=== PATIENT | female | born 1945 | race Caucasian/White ===

== ENCOUNTER → 2018-09-25 | Outpatient (CLI) | payer MEDICARE | LOC: RAD 09:30 | PROVIDERS: ATTEND Family Medicine | DX: Z12.31 Encounter for screening mammogram for malignant neoplasm of breast (principal) | CPT/HCPCS: 77067 ==

== ENCOUNTER → 2019-09-27 | Outpatient (CLI) | payer MEDICARE ==
--- NOTE | 2019-09-27 11:56 | Diagnostic Imaging Report ---
INDICATION: Routine screening. COMPARISON: Comparison is made with prior mammograms from 09/25/2018 and 05/16/2016. TECHNIQUE: 2-D and 3-D bilateral screening mammography was performed. The current study was also evaluated with a Computer Aided Detection (CAD) system. 3-D tomosynthesis was also performed and reviewed. FINDINGS: Both breasts remain heterogeneously dense, limiting the sensitivity of mammography. The parenchymal pattern is stable. No dominant mass or malignant-appearing microcalcifications are seen. Axillae are unremarkable. IMPRESSION: No mammographic features suspicious for malignancy are identified. ACR BI-RADS Category 2: Benign findings. Result letter will be mailed to the patient. Note: At least 10% of breast cancer is not imaged by mammography. Dictated by: Dictated on workstation # [id number]
== END ==
LOC: RAD 09:18
PROVIDERS: ATTEND Family Medicine
DX: Z12.31 Encounter for screening mammogram for malignant neoplasm of breast (principal)
CPT/HCPCS: 77067

== ENCOUNTER 2021-08-08 13:08 | Outpatient (CLI) | payer MEDICARE ==
[~2021-08-08] VITALS: Ht 162.6 cm; Wt 45.5 kg
[2021-08-08 14:00] VITALS: BP 108/94
[2021-08-08] MEDS ORDERED: D5 LR IV SOLUTION 500 ML IV SCH (14:15)
[2021-08-08] MEDS ORDERED: D5 LR IV SOLUTION 500 ML IV ONE (14:15)
[2021-08-08] MEDS ORDERED: ONDANSETRON 4 MG/2 ML (SDV) Z0FRAN IV ONE (14:15)
== END 2021-08-08 16:58 | disposition home or self-care (01) ==
LOC: SDC 13:08
PROVIDERS: ATTEND Family Medicine
DX: Z01.89 Encounter for other specified special examinations (principal)
CPT/HCPCS: 96360; 96361; 96374

== ENCOUNTER → 2021-12-11 | Outpatient (CLI) | payer MEDICARE ==
--- NOTE | 2021-12-11 13:08 | Diagnostic Imaging Report ---
Indication: Routine screening. Comparison is made with prior mammogram from 09/27/2019 09/25/2018. 2-D and 3-D bilateral screening mammography was performed with CAD. CAD is utilized. The current study was also evaluated with a Computer Aided Detection (CAD) system. Both breast are heterogeneously dense, limiting the sensitivity of mammography. There are benign calcifications. No mass or malignant-appearing microcalcifications are seen. Axillae are unremarkable. IMPRESSION: BI-RADS Category 2 No mammographic features suspicious for malignancy are identified. Dictated by: Dictated on workstation # [id number]
--- NOTE | 2021-12-11 17:06 | Diagnostic Imaging Report ---
INDICATION: Postmenopausal screening for osteoporosis. COMPARISON: None FINDINGS: AP Spine L1-L4: [BMD (g/cm2): 0.972] [T-Score: -1.9] [Z-Score: 0.3] [BMD Previous: NA] [BMD % Change: NA] LT Hip Neck: [BMD (g/cm2): 0.671] [T-Score: -2.6] [Z-Score: -0.4] LT Hip Total: [BMD (g/cm2):0.742] [T-Score:-2.1] [Z-Score: 0.0] [BMD Previous: NA] [BMD % Change: NA] RT Hip Neck: [BMD (g/cm2):0.678] [T-Score:-2.6] [Z-Score:-0.4] RT Hip Total: [BMD (g/cm2):0.723] [T-score:-2.3] [Z-Score:-0.2] [BMD Previous:NA] [BMD % Change:NA] *Indicates significant change from prior examination based on 95% confidence level. World Health Organization criteria for BMD interpretation classify patients as Normal (T-score at or above -1.0), Osteopenic (T-score between -1.0 and -2.5) or Osteoporotic (T-score at or below -2.5). LIMITATIONS AND MODIFICATION: None. FRACTURE RISK (FRAX SCORE): The ten year probability of (%): Major Osteoporotic Fracture: [15.3] Hip Fracture: [5.5] IMPRESSION: 1. Osteopenia (Low bone mass). 2. Baseline examination. 3. See below National Osteoporosis Foundation guidelines on when to potentially initiate pharmacologic therapy. Based on the National Osteoporosis Foundation Guidelines, pharmacologic treatment should be initiated in any of the following, unless clinical conditions suggest otherwise: * Any patient with prior fragility fracture of the hip or vertebrae. A spine fracture indicates 5X risk for subsequent spine fracture and 2X risk for subsequent hip fracture. * Osteoporosis (T-score <-2.5). * Postmenopausal women and men age 50 and older with low bone mass/osteopenia (T-score between -1.0 and -2.5) by DXA and 10-year major osteoporotic fracture greater than 20% or a 10-year probability of hip fracture greater than 3%. These fracture risks are supplied above in the FRAX score, if applicable. * Clinician judgement and/or patient preferences may indicate treatment for people with 10-year fracture probabilities above or below these levels. Dictated by: Dictated on workstation # [id number]
== END ==
LOC: RAD 09:15
PROVIDERS: ATTEND Family Medicine
DX: Z12.31 Encounter for screening mammogram for malignant neoplasm of breast (principal); Z13.820 Encounter for screening for osteoporosis; M81.0 Age-related osteoporosis without current pathological fracture; M85.88 Other specified disorders of bone density and structure, other site; Z78.0 Asymptomatic menopausal state
CPT/HCPCS: 77063; 77067; 77080

== ENCOUNTER → 2021-12-21 | Outpatient (CLI) | payer MEDICARE | LOC: CARD 10:19 | PROVIDERS: ATTEND Internal Medicine Cardiovascular Disease | DX: I35.8 Other nonrheumatic aortic valve disorders (principal) | CPT/HCPCS: 93306 ==

== ENCOUNTER → 2022-05-09 | Outpatient (CLI) | payer MEDICARE ==
--- NOTE | 2022-05-09 10:38 | Cardiology Stress Test Report ---
TREADMILL STRESS TEST Date of procedure: 05/09/2022. Primary care provider: Swapnil Kamara MD. Admitting physician: Delbert Mckee Jr., MD. INDICATION: Abnormal electrocardiogram. BASELINE ELECTROCARDIOGRAM: Sinus rhythm with nonspecific anterior T wave changes. STRESS TEST PROCEDURE: The patient was exercised for a total of 2 minutes and 47 seconds of the standard Massimo protocol achieving a maximum MET level of 4.2. The resting heart rate was 72 bpm and the peak heart rate was 147 bpm, which represents 101% of the maximum predicted heart rate. The resting blood pressure was 141/71 mmHg and the peak blood pressure was 166/84 mmHg. This represents a normal heart rate and a normal blood pressure response to exercise. The test was stopped due to patient attaining the target heart rate. There was no chest discomfort during the test. There were no arrhythmias during the test. There were no significant stress induced electrocardiogram changes. The patient exhibited good exercise capacity for age. IMPRESSION: 1. Normal heart rate and blood pressure response to exercise. 2. There was no exercise-induced chest discomfort, arrhythmias, or electrocardiogram changes. 3. The patient exhibited good exercise capacity for age at 2 minutes and 47 seconds of the Massimo protocol. 4. This is an unremarkable treadmill stress test. Certain portions of this document may have been dictated utilizing voice recognition technology. Inherent to this technology, typographical and grammatical errors may exist. As much as I am diligent to identify and correct these mistakes, some errors may remain in the document. DELBERT MCKEE JR, MD May 09, 2022 10:38
== END ==
LOC: CARD 09:15
PROVIDERS: ATTEND Internal Medicine Cardiovascular Disease
DX: R94.31 Abnormal electrocardiogram [ECG] [EKG] (principal)
CPT/HCPCS: 93017

== ENCOUNTER → 2023-02-25 | Outpatient (CLI) | payer MEDICARE ==
--- NOTE | 2023-02-25 15:35 | Diagnostic Imaging Report ---
INDICATION: Routine screening. COMPARISON: 12/11/2021 and 09/27/2019. TECHNIQUE: 2D and 3D bilateral screening mammography was performed with CAD. FINDINGS: Both breasts are heterogeneously dense, limiting the sensitivity of mammography. The parenchymal pattern is stable. No mass or malignant-appearing microcalcifications are seen. The axillae are unremarkable. IMPRESSION: No mammographic features suspicious for malignancy are identified. ACR BI-RADS Category 1: Negative. Result letter will be mailed to the patient. Note: At least 10% of breast cancer is not imaged by mammography. Dictated by: Dictated on workstation # [id number]
== END ==
LOC: RAD 09:52
PROVIDERS: ATTEND Family Medicine
DX: Z12.31 Encounter for screening mammogram for malignant neoplasm of breast (principal)
CPT/HCPCS: 77063; 77067

== ENCOUNTER → 2023-04-09 | Outpatient (CLI) | payer MEDICARE | END | disposition home or self-care (01) | LOC: PREOP 05:31 | PROVIDERS: ATTEND Surgery | DX: Z01.818 Encounter for other preprocedural examination (principal) ==

== ENCOUNTER 2023-06-17 07:07 | Day surgery (SDC) | payer MEDICARE ==
[~2023-06-17] VITALS: Ht 162.6 cm; Wt 54.0 kg
[~2023-06-17 07:07] MED LIST: BIMA2.5D4 OU; LEVO75CA5 PO; LORA-405 PO; PANT40TA52 PO; ROSU10TA28 PO
[2023-06-17] MEDS ORDERED: LACTATED RINGERS 1,000 ML 1,000 ML IV STA (07:15)
[2023-06-17 07:37] VITALS: BP 139/77
[2023-06-17 08:40] VITALS: BP 89/48
--- NOTE | 2023-06-17 08:42 | Progress Note-Post Operative ---
Post-Operative Progess Note Surgeon (s)/Parenting Skills Instructor (s) Surgeon JOSE COOK DO Parenting Skills Instructor: n/a Pre-Operative Diagnosis screening colonoscopy Post-Operative Diagnosis normal colonoscopy Procedure & Operative Findings Date of Procedure 06/17/23 Procedure Performed/Findings normal colonoscopy Anesthesia Type per OUTSIDE SALES ASSOCIATE Estimated Blood Loss Estimated blood loss (mL): none Specimens/Packing Specimens Removed none JOSE COOK DO Jun 17, 2023 08:41
--- NOTE | 2023-06-17 08:43 | Discharge Inst-Simple/Standard ---
Discharge Inst-Standard Patient Instructions/Follow Up Plan of Care/Instructions/FU: does not need anymore unless has symptoms Activity as Tolerated: Yes Discharge Diet: Regular Diet JOSE COOK DO Jun 17, 2023 08:43
[2023-06-17 08:45] VITALS: BP 94/50
[2023-06-17 08:55] VITALS: BP 112/57
[2023-06-17 09:29] VITALS: BP 112/57
--- NOTE | 2023-06-17 11:18 | Anesthesia-General Post-Op ---
MAC Patient Condition Mental Status/LOC: Same as Preop Cardiovascular: Satisfactory Nausea/Vomiting: Absent Respiratory: Satisfactory Pain: Controlled Complications: Absent Post Op Complications Complications None Follow Up Care/Instructions Patient Instructions None needed. Anesthesiology Discharge Order Discharge Order Patient is doing well, no complaints, stable vital signs, no apparent adverse anesthesia problems. No complications reported per nursing. MARGY BERRY CRNA Jun 17, 2023 11:18
--- NOTE | 2023-06-17 15:01 | OPERATIVE REPORT ---
DATE OF SERVICE: 06/17/2023 PREOPERATIVE DIAGNOSIS: Screening colonoscopy. POSTOPERATIVE DIAGNOSIS: Normal colon. PROCEDURE: Colonoscopy. SURGEON: Jose Lassiter DO ANESTHESIA: Per COMMUNITY CASE MANAGER. ESTIMATED BLOOD LOSS: None. COMPLICATIONS: None. INDICATIONS: The patient is a 77-year-old female who has never had a colonoscopy. She understands risks and benefits of procedure and wished to proceed. Consent was signed in chart. DESCRIPTION OF PROCEDURE: The patient was taken to the endoscopy suite, placed in left lateral recumbent position. Timeout was performed. Digital rectal exam was performed. No palpable polyps, masses or ulcerations. Scope was inserted in the rectum, advanced all the way to the cecum with minimal difficulty. Prep was adequate. Scope was slowly retracted back. No polyps, masses or ulcerations in the cecum, ascending, transverse, descending and sigmoid colon. Once in the rectum, scope was retroflexed noting no other pathology. Scope was returned to its normal position, slowly withdrawn until completely removed. The patient tolerated the procedure well, no complications, taken to recovery room in stable condition. Job ID: [id number] DocumentID: [id number] Dictated Date: 06/17/2023 08:40:32 Slot Service Specialist Date: 06/17/2023 15:00:00 Dictated By: JOSE LASSITER DO
== END 2023-06-17 09:28 | disposition home or self-care (01) ==
LOC: ENDO 07:07
PROVIDERS: ATTEND Surgery
DX: Z12.11 Encounter for screening for malignant neoplasm of colon (principal); Z87.891 Personal history of nicotine dependence